=== PATIENT | male | born 1955 | race Two or more races ===

== ENCOUNTER 2021-07-17 09:41 | Outpatient (CLI) | payer OTHER | END 2021-07-17 09:53 | disposition home or self-care (01) | LOC: RAD 09:41 | PROVIDERS: ATTEND Urology | DX: I11.9 Hypertensive heart disease without heart failure (principal) ==

== ENCOUNTER 2021-07-23 10:15 | Inpatient (IN) | payer OTHER ==
[~2021-07-23] VITALS: Ht 165.1 cm; Wt 68.0 kg
[2021-07-23] MEDS ORDERED: ZESTRIL20 MG PO (14:02)
[2021-07-23] MEDS ORDERED: METFORMIN HCL1000 M2 PO (14:02)
[2021-07-23] MEDS ORDERED: ATORVASTATIN CA10 MG PO (14:02)
[2021-07-23] MEDS ORDERED: PROTONIX40 MG PO (14:03)
[2021-07-23] MEDS ORDERED: RESTORIL15 M1 PO (14:03)
[2021-07-23] MEDS ORDERED: TAMS0.4C PO (14:03)
[2021-07-25] MEDS ORDERED: GLIPIZIDE10 MG (08:03)
== END 2021-07-27 13:07 | disposition home or self-care (01) | DRG 708 ==
LOC: O/R 07-25 05:45 → SURH 07-25 07:00 → SURG 07-25 16:15
PROVIDERS: ADMIT Urology; ATTEND Urology
PROC: 0VT30ZZ Resection of Bilateral Seminal Vesicles, Open Approach (ICD-10-PCS; 2021-07-25)
PROC: 07BC0ZZ Excision of Pelvis Lymphatic, Open Approach (ICD-10-PCS; 2021-07-25)
PROC: 0VT00ZZ Resection of Prostate, Open Approach (ICD-10-PCS; principal; 2021-07-25 07:00)
DX: C61 Malignant neoplasm of prostate (principal); R59.0 Localized enlarged lymph nodes

== ENCOUNTER 2021-08-06 09:42 | Outpatient (CLI) | payer OTHER ==
[~2021-08-06 09:42] MED LIST: ATORVASTATIN CA10 MG PO; GLIPIZIDE10 MG; METFORMIN HCL1000 M2 PO; PROTONIX40 MG PO; RESTORIL15 M1 PO; TAMS0.4C PO; ZESTRIL20 MG PO
== END 2021-08-06 09:45 | disposition home or self-care (01) ==
LOC: LAB 09:42
PROVIDERS: ATTEND Urology
DX: C61 Malignant neoplasm of prostate (principal); N30.00 Acute cystitis without hematuria; D62 Acute posthemorrhagic anemia